=== PATIENT | female | born 1980 | race American Indian/Alaskan Native ===

== ENCOUNTER 2020-07-18 21:07 | Emergency (ER) | payer SELFPAY ==
[2020-07-19 00:30] LABS: Hematocrit 34.6 % (30.3-42.9); Hemoglobin 11.3 gm/dl (10.1-14.3); Mean Corpuscular HGB Conc 33 % (30-34); Mean Corpuscular Volume 87 fl (79-97); Platelet Count 314 K/mm3 (140-440); Red Blood Count 3.98 M/mm3 (3.65-5.03); Red Cell Distribution Width 16.5 % (13.2-15.2)
[2020-07-19 00:50] LABS: Alanine Aminotransferase 15 units/L (7-56); Albumin 4.1 g/dL (3.9-5); BUN/Creatinine Ratio 19; Blood Urea Nitrogen 15 mg/dL (7-17); Calcium 8.8 mg/dL (8.4-10.2); Hemolysis Index 5
[2020-07-19 00:58] LABS: Bacteria,Urine 1+ /HPF (Negative); Bilirubin,Urine NEG (Negative); Blood,Urine SM (Negative); Color,Urine Yellow (Yellow); Mucus,Urine 2+ /HPF; Protein,Urine <15 mg/dL mg/dL (Negative); Urobilinogen,Urine < 2.0 mg/dL (<2.0)
--- NOTE | 2020-07-19 01:32 | XRay Report ---
CHEST 1 VIEW INDICATION: cough. COMPARISON: None. FINDINGS: Support devices: None. Heart: Normal. Lungs/Pleura: No acute pulmonary or pleural findings. IMPRESSION: 1. No acute findings. Signer Name: Dorian Kraft MD Signed: 07/19/2020 1:28 AM Workstation Name: [id number]
[2020-07-19] MEDS ORDERED: IBUPROFEN 600 MG TAB PO ONE (02:59)
--- NOTE | 2020-07-19 03:35 | Emergency Department Report ---
ED Abdominal Pain HPI - General Chief Complaint: Abdominal Pain Stated Complaint: ABDOMINAL PAIN PUI?: No Time Seen by Provider: 07/19/20 03:20 Source: patient Mode of arrival: Ambulatory Limitations: No Limitations - History of Present Illness Initial Comments: The patient was evaluated in the emergency department for symptoms described in the history of present illness. He/she was evaluated in the context of the global COVID-19 pandemic, which necessitated consideration that the patient might be at risk for infection with the virus that causes COVID-19. Institutional protocols and algorithms that pertain to the evaluation of patients at risk for COVID-19 are in a state of rapid change based on information released by regulatory bodies including the CDC and federal and state organizations. These policies and algorithms were followed during the patient's care in the emergency department. Please note that these policies, procedures and recommendations changed on a rapid basis. 39-year-old female presents to the emergency room for intermittent cough with a left upper abdominal pain x1-1/2 weeks. Patient states there is a knot in her stomach on the left side. Patient is taking nothing for her pain. She denies any nausea no vomiting no fever no chills no diarrhea or constipation. Patient states that she has had a cough for about 2 weeks but has not taken anything for the cough secondary to she works too much and does not have time to go to a doctor. Patient reports that she is currently started her menstrual cycle today 07/19/2020. She states her pain is a 6 out of 10. She denies any past medical history currently takes no medications on a daily basis and has no known drug allergies. MD Complaint: abdominal pain Onset/Timin -: week(s) Location: [facility] Migration to: no migration Severity scale (0 -10): 5 Quality: sharp Consistency: intermittent Worsens With: movement (Certain movements like sitting up) Associated Symptoms: denies: nausea, vomiting, diarrhea, fever, constipation, dysuria Treatments Prior to Arrival: other (none) - Related Data LMP Date: 07/19/20 Previous Rx's Medication Instructions Recorded Last Taken Type Ibuprofen [Motrin 600 MG tab] 600 mg PO Q8H PRN #21 tablet 07/19/20 Unknown Rx Allergies Allergy/AdvReac Type Severity Reaction Status Date / Time No Known Allergies Allergy Verified 07/19/20 04:02 ED Review of Systems ROS: Stated complaint: ABDOMINAL PAIN Other details as noted in HPI Comment: All other systems reviewed and negative ED Past Medical Hx - Past Medical History Previous Medical History?: No - Surgical History Past Surgical History?: No - Social History Smoking Status: Current Every Day Smoker Substance Use Type: None - Medications Home Medications: Home Medications Medication Instructions Recorded Confirmed Last Taken Type Ibuprofen [Motrin 600 MG tab] 600 mg PO Q8H PRN #21 tablet 07/19/20 Unknown Rx ED Physical Exam - General Limitations: No Limitations General appearance: alert, in no apparent distress - Head Head exam: Present: atraumatic, normocephalic - Eye Eye exam: Present: normal appearance, PERRL - ENT ENT exam: Present: mucous membranes moist - Neck Neck exam: Present: normal inspection - Respiratory Respiratory exam: Present: normal lung sounds bilaterally. Absent: chest wall tenderness - Cardiovascular Cardiovascular Exam: Present: regular rate, normal rhythm. Absent: systolic murmur, diastolic murmur, rubs, gallop - GI/Abdominal GI/Abdominal exam: Present: soft, tenderness (Deep palpation under upper left quadrant), normal bowel sounds. Absent: distended - Rectal Rectal exam: Present: deferred - Extremities Exam Extremities exam: Present: normal inspection, full ROM - Back Exam Back exam: Present: normal inspection - Neurological Exam Neurological exam: Present: alert, oriented X3, normal gait - Psychiatric Psychiatric exam: Present: normal affect, normal mood - Skin Skin exam: Present: warm, dry, intact, normal color. Absent: rash ED Course Vital Signs 07/18/20 22:55 Temperature 98.0 F Pulse Rate 74 Respiratory 18 Rate Blood Pressure 113/65 O2 Sat by Pulse 96 Oximetry ED Medical Decision Making - Lab Data Result diagrams: 07/19/20 00:10 07/19/20 00:10 - Radiology Data Radiology results: report reviewed [facility] [address] [place] [address] Cat Scan Report Signed Patient: SVITLANA TESFAYE MR#: [id number] : 1980 Acct:[id number] Age/Sex: 39 / F ADM Date: 07/18/20 Loc: ED Attending Dr: Ordering Physician: HARDIK SOTO Date of Service: 07/19/20 Procedure(s): CT abdomen pelvis w con Accession Number(s): [id number] [facility] [place] [facility] AND PELVIS WITH IV CONTRAST INDICATION: Left upper quadrant pain. COMPARISON: None available. TECHNIQUE: All CT scans at this facility use dose modulation, automated exposure control, iterative reconstruction or weight based dosing, when appropriate, to reduce radiation dose to as low as reasonably achievable. FINDINGS: Lung Bases: No significant abnormality. Skeletal System: No acute abnormality. ABDOMEN: Liver: No significant abnormality. Gallbladder: No significant abnormality. Bile Ducts: No significant abnormality. Pancreas: No significant abnormality. Spleen: No significant abnormality. Adrenals: No significant abnormality. Right Kidney: No significant abnormality. Left Kidney: No significant abnormality. Upper GI tract: No significant abnormality. Lymph Nodes: No significant adenopathy. Aorta: No significant abnormality. Additional Findings: No significant abnormality. PELVIS: Colon: No acute abnormality. Diverticulosis is noted. Urinary Bladder and Distal Ureters: No significant abnormality. Appendix: No significant abnormality. Lymph Nodes: No significant adenopathy. Additional Findings: There are 3 uterine fibroids, the largest at the fundus measures 3.7 cm. There is a 3.2 cm left ovarian cysts. IMPRESSION: 1. No acute process in the abdomen or pelvis. 2. Incidental findings, as above. Signer Name: Svitlana Kraft MD Signed: 07/19/2020 4:12 AM Workstation Name: [id number] Transcribed By: PIPER Dictated By: Svitlana Kraft MD Electronically Authenticated By: Svitlana Kraft MD Signed Date/Time: 07/19/20 0412 DD/ 0407 TD/TT: - Medical Decision Making 39-year-old female presents to the emergency room for intermittent cough with a left upper abdominal pain x1-1/2 weeks. Patient states there is a knot in her stomach on the left side. Patient is taking nothing for her pain. She denies any nausea no vomiting no fever no chills no diarrhea or constipation. Patient states that she has had a cough for about 2 weeks but has not taken anything for the cough secondary to she works too much and does not have time to go to a doctor. Patient reports that she is currently started her menstrual cycle today 07/19/2020. She states her pain is a 6 out of 10. She denies any past medical history currently takes no medications on a daily basis and has no known drug allergies. Labs are within normal limits. CT with contrast has been ordered. Patient's b een given ibuprofen for pain management. Critical care attestation.: If time is entered above; I have spent that time in minutes in the direct care of this critically ill patient, excluding procedure time. ED Disposition Clinical Impression: Cough, Fibroids, Left ovarian cyst Abdominal pain Qualifiers: Abdominal location: left upper quadrant Qualified Code(s): R10.12 - Left upper quadrant pain Disposition: TO HOME OR SELFCARE Is pt being admited?: No Does the pt Need Aspirin: No Condition: Stable Instructions: Abdominal Pain (ED), Ovarian Cyst, [id number], Uterine Fibroids, [id number], Cough, Adult, [id number] Additional Instructions: X-rays negative for any acute findings in your lungs. Your CT scan shows you have 3 uterine fibroids and a left ovarian cyst. There is no other acute abnormalities. I recommend ibuprofen for pain you can take [id number] Robitussin-DM for your cough. Follow-up with a primary care provider and [facility] provider. Prescriptions: Ibuprofen [Motrin 600 MG tab] 600 mg PO Q8H PRN #21 tablet PRN Reason: Pain Referrals: PRIMARY CARE, [Primary Care Provider] - 3-5 Days [facility] [Provider Group] - 3-5 Days Forms: Work/School Release Form(ED)
[2020-07-19 04:03] LABS: Anisocytosis 1+; Basophils % (Manual) 0 % (0.0-1.8); Platelet Estimate Consistent w Auto; Total Cells Counted 100
--- NOTE | 2020-07-19 04:16 | Cat Scan Report ---
CT ABDOMEN AND PELVIS WITH IV CONTRAST INDICATION: Left upper quadrant pain. COMPARISON: None available. TECHNIQUE: All CT scans at this facility use dose modulation, automated exposure control, iterative reconstructi on or weight based dosing, when appropriate, to reduce radiation dose to as low as reasonably achieva ble. FINDINGS: Lung Bases: No significant abnormality. Skeletal System: No acute abnormality. ABDOMEN: Liver: No significant abnormality. Gallbladder: No significant abnormality. Bile Ducts: No significant abnormality. Pancreas: No significant abnormality. Spleen: No significant abnormality. Adrenals: No significant abnormality. Right Kidney: No significant abnormality. Left Kidney: No significant abnormality. Upper GI tract: No significant abnormality. Lymph Nodes: No significant adenopathy. Aorta: No significant abnormality. Additional Findings: No significant abnormality. PELVIS: Colon: No acute abnormality. Diverticulosis is noted. Urinary Bladder and Distal Ureters: No significant abnormality. Appendix: No significant abnormality. Lymph Nodes: No significant adenopathy. Additional Findings: There are 3 uterine fibroids, the largest at the fundus measures 3.7 cm. There i s a 3.2 cm left ovarian cysts. IMPRESSION: 1. No acute process in the abdomen or pelvis. 2. Incidental findings, as above. Signer Name: Dorian Kraft MD Signed: 07/19/2020 4:12 AM Workstation Name: [id number]
[2020-07-19 06:35] VITALS: BP 128/81
== END 2020-07-19 05:15 | disposition home or self-care (01) ==
LOC: ED 21:07
DX: D21.9 Benign neoplasm of connective and other soft tissue, unspecified (principal); N83.202 Unspecified ovarian cyst, left side; R05 Cough; F17.200 Nicotine dependence, unspecified, uncomplicated; Z79.1 Long term (current) use of non-steroidal anti-inflammatories (NSAID)
CPT/HCPCS: 36415; 71045; 74177; 80053; 81001; 83690; 84703; 85007; 85025; 99284; Q9967